=== PATIENT | male | born 1955 | race African-American/Black ===

== ENCOUNTER 2016-06-03 21:09 | Emergency (ER) | payer MEDICAID ==
[~2016-06-03] VITALS: Ht 182.9 cm; Wt 95.0 kg
[~2016-06-03 21:09] MED LIST: AMLO5TAB88 PO; ASPI81TA2 PO; COR12 PO; FURO40TA5 PO; LOSA50TA3 PO
[2016-06-03] MEDS ORDERED: NITROGLYCERIN 0.4MG TABLET SL SL PRN (21:30)
[2016-06-03] MEDS ORDERED: ASPIRIN 81MG TABLET PO ONE (21:30)
[2016-06-03 23:20] LABS: BASOPHILS % 0.7 % (0.0-2.0); EOSINOPHILS % 1.8 % (0.0-5.0); HEMATOCRIT. 28.5 % (42.0-52.0); HEMOGLOBIN. 9.3 g/dL (14.0-18.0); LYMPHOCYTES % 13.1 % (20.0-50.0); MEAN CORPUSCULAR HGB CONC 32.7 g/dL (31.0-37.0); MEAN CORPUSCULAR VOLUME 91.5 fL (80.0-94.0); MEAN PLATELET VOLUME 8.9 fl (7.4-10.4); MONOCYTES % 13.6 % (2.0-8.0); NEUTROPHILS % 70.8 % (40.0-76.0); PLATELET 221 x1000/uL (130-400); RED BLOOD CELL COUNT 3.11 mill/uL (4.7-6.1); RED CELL DISTRIBUTION WIDTH 14.9 % (11.6-14.6); WHITE BLOOD COUNT 7.5 x1000/uL (4.5-11.0)
[2016-06-03 23:22] LABS: CHLORIDE 103 mEq/L (98-107)
[2016-06-03 23:23] LABS: INR 1.1; PROTHROMBIN TIME 11.1 sec
[2016-06-03 23:33] LABS: ALANINE AMINOTRANSFERASE 14 IU/L (13-61); ALBUMIN 2.9 g/dL (3.4-5.0); ANION GAP 12; CALCIUM 7.8 mg/dL (8.5-10.1); CARBON DIOXIDE 27 mEq/L (21-32); INDEX HEMOLYSI 1 (1-3); INDEX ICTERIC 1 (1-4); INDEX LIPEMIC 1 (1-3); NT PRO B-TYPE NATRIURETIC PEP 4795 pg/mL (5-125); TROPONIN I 0.05 ng/mL (0.00-0.04); UREA NITROGEN BLOOD 67 mg/dL (7-21); eGFR 30 mL/min (>60)
[2016-06-04] MEDS ORDERED: FUROSEMIDE 40MG/4ML VIAL IVP ONE (00:15)
[2016-06-04] MEDS ORDERED: IBUPROFEN 600MG TABLET PO ONE (00:15)
[2016-06-04] MEDS ORDERED: ACETAMINOPHEN WITH CODEINE 300/30MG TABLET PO ONE (00:30)
[2016-06-04 00:55] VITALS: BP 142/92
[2016-06-09] MEDS ORDERED: ISOS30TA6 PO (03:46)
[2016-06-09] MEDS ORDERED: METF10002 PO (03:46)
[2016-06-09] MEDS ORDERED: ATOR10TA PO (03:46)
[2016-06-09] MEDS ORDERED: FOLI-43 PO (03:46)
[2016-06-09] MEDS ORDERED: HYDR-4134 PO (03:46)
== END 2016-06-04 01:10 | disposition home or self-care (01) ==
LOC: ER 21:09
DX: I13.0 Hypertensive heart and chronic kidney disease with heart failure and stage 1 through stage 4 chronic kidney disease, or unspecified chronic kidney disease (principal); N18.9 Chronic kidney disease, unspecified; I50.9 Heart failure, unspecified; E11.22 Type 2 diabetes mellitus with diabetic chronic kidney disease; Z79.899 Other long term (current) drug therapy; Z88.7 Allergy status to serum and vaccine; F12.10 Cannabis abuse, uncomplicated; E78.00 Pure hypercholesterolemia, unspecified
CPT/HCPCS: 36415; 71010; 80053; 83880; 84484; 85025; 85610; 93005; 96374; 99285; J1940; Z7610

== ENCOUNTER 2016-06-04 01:37 | Emergency (ER) | payer MEDICAID ==
[~2016-06-04] VITALS: Ht 198.1 cm; Wt 96.0 kg
[2016-06-04] MEDS ORDERED: IBUPROFEN 800MG TABLET PO ONE (03:00)
[2016-06-04] MEDS ORDERED: CYCLOBENZAPRINE 10MG TABLET PO ONE (03:00)
[2016-06-04 08:17] VITALS: BP 149/86
== END 2016-06-04 08:17 | disposition home or self-care (01) ==
LOC: ER 02:22
DX: M54.5 Low back pain (principal); I11.9 Hypertensive heart disease without heart failure; I25.10 Atherosclerotic heart disease of native coronary artery without angina pectoris; E11.9 Type 2 diabetes mellitus without complications; F12.10 Cannabis abuse, uncomplicated; Z88.7 Allergy status to serum and vaccine; Z79.82 Long term (current) use of aspirin; Z79.899 Other long term (current) drug therapy
CPT/HCPCS: 72100; 99284

== ENCOUNTER 2020-06-05 09:01 | Inpatient (IN) | payer MEDICAID ==
[~2020-06-05] VITALS: Ht 182.9 cm; Wt 108.9 kg
[~2020-06-05 09:01] MED LIST changes: +ASPI-1160 PO; -ASPI81TA2 PO; +ATOR10TA PO; -COR12 PO; +COR25 PO; +FERR325T6 PO; +FOLI-43 PO; +HYDR-4134 PO; +ISOS30TA91 PO
[2020-06-05 09:57] LABS: BASOPHILS % 1.4 % (0.0-2.0); EOSINOPHILS % 0.4 % (0.0-5.0); HEMATOCRIT. 35.2 % (42.0-52.0); HEMOGLOBIN. 11.4 g/dL (14.0-18.0); LYMPHOCYTES % 9.9 % (20.0-50.0); MEAN CORPUSCULAR HEMOGLOBIN 32.7 pg (28.0-32.0); MEAN CORPUSCULAR VOLUME 100.7 fL (80.0-94.0); MEAN PLATELET VOLUME 10.3 fl (7.4-10.4); MONOCYTES % 12.9 % (2.0-8.0); NEUTROPHILS % 75.4 % (40.0-76.0); PLATELET 168 x1000/uL (130-400); RED BLOOD CELL COUNT 3.49 mill/uL (4.7-6.1); RED CELL DISTRIBUTION WIDTH 19.4 % (11.6-14.6)
[2020-06-05 10:15] LABS: INR 1.4; PROTHROMBIN TIME 14.3 sec (9.6-11.0)
[2020-06-05 10:50] LABS: CHLORIDE 97 mEq/L (98-107)
[2020-06-05 10:55] LABS: ETHANOL BLOOD < 10 mg/dL
[2020-06-05 10:57] LABS: PHOSPHORUS 6.5 mg/dL (2.5-4.9)
[2020-06-05 10:58] LABS: LDL CHOLESTEROL 34 mg/dL (5-100)
[2020-06-05] MEDS ORDERED: ASPIRIN 81MG TABLET PO ONE (11:30)
[2020-06-05] MEDS ORDERED: LORAZEPAM 0.5MG TABLET PO PRN (12:15)
[2020-06-05] MEDS ORDERED: DOCUSATE SODIUM 100MG CAPSULE PO PRN (12:15)
[2020-06-05] MEDS ORDERED: ACETAMINOPHEN 325MG TABLET PO PRN ×2 (12:15)
[2020-06-05] MEDS ORDERED: IPRATROPIUM/ALBUTEROL 0.5-3(2.5)MG/3ML NEB HHN PRN (12:15)
[2020-06-05] MEDS ORDERED: ONDANSETRON HCL 4MG/2ML INJ IV PRN (12:15)
[2020-06-05] MEDS ORDERED: CLONIDINE 0.1MG TABLET PO PRN (12:15)
[2020-06-05 12:59] LABS: FOLIC ACID (FOLATE) SERUM 5.9 ng/mL (>5.38)
[2020-06-05 13:30] VITALS: BP 112/72
[2020-06-05] MEDS: AMLODIPINE 2.5MG TABLET PO SCH (14:15)
[2020-06-05 16:00] VITALS: BP 103/72
[2020-06-05] MEDS: HYDROCODONE/ACETAMINOPHEN 5/325MG TABLET PO PRN (17:20)
[2020-06-05 17:39] VITALS: BP 107/79
[2020-06-05 20:00] VITALS: BP 107/71
[2020-06-06] VITALS: BP 121/85
[2020-06-06] MEDS: HYDROCODONE/ACETAMINOPHEN 5/325MG TABLET PO PRN ×3 (03:52→23:23)
[2020-06-06 04:00] VITALS: BP 122/93
[2020-06-06 08:00] VITALS: BP 114/78
[2020-06-06] MEDS: ASPIRIN 81MG EC TABLET PO SCH (08:56)
[2020-06-06] MEDS: AMLODIPINE 2.5MG TABLET PO SCH (08:57)
[2020-06-06] MEDS ORDERED: DEXTROSE 50% WATER 50ML SYRINGE IV PRN ×2 (10:45)
[2020-06-06 10:47] LABS: BASOPHILS % 0.9 % (0.0-2.0); EOSINOPHILS % 0.4 % (0.0-5.0); HEMATOCRIT. 33.6 % (42.0-52.0); LYMPHOCYTES % 13.8 % (20.0-50.0); MEAN CORPUSCULAR HEMOGLOBIN 32.8 pg (28.0-32.0); MEAN CORPUSCULAR VOLUME 100.2 fL (80.0-94.0); MEAN PLATELET VOLUME 9.5 fl (7.4-10.4); MONOCYTES % 12.5 % (2.0-8.0); NEUTROPHILS % 72.4 % (40.0-76.0); PLATELET 156 x1000/uL (130-400); RED BLOOD CELL COUNT 3.35 mill/uL (4.7-6.1); RED CELL DISTRIBUTION WIDTH 18.5 % (11.6-14.6)
[2020-06-06] MEDS: ENOXAPARIN 40MG/0.4ML SYR SUBCUT SCH ×2 (11:34→11:52)
[2020-06-06] MEDS: FOLIC ACID 1MG TABLET PO SCH (11:51)
[2020-06-06] MEDS: BLOOD SUGAR DIAGNOSTIC STRIP TEST SCH ×3 (11:52→20:39)
[2020-06-06 12:00] VITALS: BP 116/89
[2020-06-06] MEDS: INSULIN LISPRO 100 UNITS/ML SUBCUT SCH ×3 (12:20→20:40)
[2020-06-06] MEDS ORDERED: CARVEDILOL 3.125 MG TABLET PO NR (13:00)
[2020-06-06 16:00] VITALS: BP 98/67
[2020-06-06 20:00] VITALS: BP 95/68
[2020-06-06] MEDS: ATORVASTATIN CALCIUM 10MG TABLET PO SCH (20:39)
[2020-06-06] MEDS: CARVEDILOL 3.125 MG TABLET PO SCH (20:40)
[2020-06-07] VITALS: BP 105/76
[2020-06-07 04:00] VITALS: BP 113/81
[2020-06-07] MEDS: INSULIN LISPRO 100 UNITS/ML SUBCUT SCH ×4 (06:57→21:28)
[2020-06-07] MEDS: HYDROCODONE/ACETAMINOPHEN 5/325MG TABLET PO PRN ×2 (06:57→13:53)
[2020-06-07] MEDS: BLOOD SUGAR DIAGNOSTIC STRIP TEST SCH ×4 (06:57→21:27)
[2020-06-07 08:00] VITALS: BP 120/79
[2020-06-07] MEDS: AMLODIPINE 2.5MG TABLET PO SCH (09:00)
[2020-06-07] MEDS: CARVEDILOL 3.125 MG TABLET PO SCH ×2 (09:00→21:27)
[2020-06-07] MEDS: ASPIRIN 81MG EC TABLET PO SCH (09:22)
[2020-06-07] MEDS: FOLIC ACID 1MG TABLET PO SCH (09:22)
[2020-06-07] MEDS: ENOXAPARIN 40MG/0.4ML SYR SUBCUT SCH (09:22)
[2020-06-07 12:00] VITALS: BP 115/86
[2020-06-07 16:00] VITALS: BP 121/71
[2020-06-07 20:00] VITALS: BP 111/69
[2020-06-07] MEDS: ATORVASTATIN CALCIUM 10MG TABLET PO SCH (21:27)
[2020-06-08] VITALS: BP 102/67
[2020-06-08] MEDS: HYDROCODONE/ACETAMINOPHEN 5/325MG TABLET PO PRN ×3 (03:30→20:21)
[2020-06-08 04:00] VITALS: BP 106/76
[2020-06-08] MEDS: BLOOD SUGAR DIAGNOSTIC STRIP TEST SCH ×4 (06:07→20:14)
[2020-06-08] MEDS: INSULIN LISPRO 100 UNITS/ML SUBCUT SCH ×4 (06:07→20:14)
[2020-06-08 08:00] VITALS: BP 118/85
[2020-06-08 08:33] LABS: BASOPHILS % 1.6 % (0.0-2.0); EOSINOPHILS % 0.6 % (0.0-5.0); HEMATOCRIT. 34.2 % (42.0-52.0); HEMOGLOBIN. 10.9 g/dL (14.0-18.0); MEAN CORPUSCULAR HEMOGLOBIN 32.2 pg (28.0-32.0); MEAN CORPUSCULAR VOLUME 100.6 fL (80.0-94.0); MEAN PLATELET VOLUME 9.5 fl (7.4-10.4); MONOCYTES % 11.4 % (2.0-8.0); NEUTROPHILS % 77.4 % (40.0-76.0); PLATELET 156 x1000/uL (130-400)
[2020-06-08] MEDS: ENOXAPARIN 40MG/0.4ML SYR SUBCUT SCH ×2 (09:00→09:23)
[2020-06-08] MEDS: ASPIRIN 81MG EC TABLET PO SCH (09:23)
[2020-06-08] MEDS: FOLIC ACID 1MG TABLET PO SCH (09:23)
[2020-06-08] MEDS: AMLODIPINE 2.5MG TABLET PO SCH (09:25)
[2020-06-08] MEDS: CARVEDILOL 3.125 MG TABLET PO SCH ×2 (09:27→20:14)
[2020-06-08 12:00] VITALS: BP 111/79
[2020-06-08 16:00] VITALS: BP 120/86
[2020-06-08 20:00] VITALS: BP 110/79
[2020-06-08] MEDS: ATORVASTATIN CALCIUM 10MG TABLET PO SCH (20:14)
[2020-06-09] VITALS: BP 150/65
[2020-06-09] MEDS: HYDROCODONE/ACETAMINOPHEN 5/325MG TABLET PO PRN ×2 (03:13→10:54)
[2020-06-09 04:00] VITALS: BP 105/66
[2020-06-09] MEDS: BLOOD SUGAR DIAGNOSTIC STRIP TEST SCH ×2 (06:00→11:45)
[2020-06-09] MEDS: INSULIN LISPRO 100 UNITS/ML SUBCUT SCH ×2 (06:43→12:49)
[2020-06-09 06:46] LABS: BASOPHILS % 0.6 % (0.0-2.0); EOSINOPHILS % 0.5 % (0.0-5.0); HEMATOCRIT. 32.1 % (42.0-52.0); HEMOGLOBIN. 10.4 g/dL (14.0-18.0); LYMPHOCYTES % 11.9 % (20.0-50.0); MEAN CORPUSCULAR HEMOGLOBIN 32.7 pg (28.0-32.0); MEAN CORPUSCULAR VOLUME 101.2 fL (80.0-94.0); MEAN PLATELET VOLUME 9.7 fl (7.4-10.4); MONOCYTES % 14.4 % (2.0-8.0); NEUTROPHILS % 72.6 % (40.0-76.0); PLATELET 162 x1000/uL (130-400); RED BLOOD CELL COUNT 3.17 mill/uL (4.7-6.1); RED CELL DISTRIBUTION WIDTH 19.3 % (11.6-14.6)
[2020-06-09 08:00] VITALS: BP 109/74
[2020-06-09] MEDS: AMLODIPINE 2.5MG TABLET PO SCH (08:48)
[2020-06-09] MEDS: ASPIRIN 81MG EC TABLET PO SCH (08:50)
[2020-06-09] MEDS: ENOXAPARIN 40MG/0.4ML SYR SUBCUT SCH (08:50)
[2020-06-09] MEDS: CARVEDILOL 3.125 MG TABLET PO SCH (08:50)
[2020-06-09] MEDS: FOLIC ACID 1MG TABLET PO SCH (08:50)
[2020-06-09 10:54] VITALS: BP 109/74
[2020-06-09] MEDS ORDERED: FURO40TA5 PO (12:15)
[2020-06-09] MEDS ORDERED: AMLO2.5T45 PO (12:15)
[2020-06-09] MEDS ORDERED: COR3 PO (12:15)
== END 2020-06-09 14:19 | disposition home health service (06) | DRG 194 ==
LOC: ER 09:01 → EDBEDREQTM 10:40 → 5WST 11:19 → EDBEDREQTM 11:22 → EDBEDREQ 11:22 → ENRESERV 11:51
PROVIDERS: ADMIT Internal Medicine; ATTEND Internal Medicine
PROC: 5A1D70Z Performance of Urinary Filtration, Intermittent, Less than 6 Hours Per Day (ICD-10-PCS; principal; 2020-06-05)
PROC: 5A1D70Z Performance of Urinary Filtration, Intermittent, Less than 6 Hours Per Day (ICD-10-PCS; 2020-06-06)
PROC: 5A1D70Z Performance of Urinary Filtration, Intermittent, Less than 6 Hours Per Day (ICD-10-PCS; 2020-06-07)
PROC: 5A1D70Z Performance of Urinary Filtration, Intermittent, Less than 6 Hours Per Day (ICD-10-PCS; 2020-06-09)
DX: I13.2 Hypertensive heart and chronic kidney disease with heart failure and with stage 5 chronic kidney disease, or end stage renal disease (principal); I50.23 Acute on chronic systolic (congestive) heart failure; I42.0 Dilated cardiomyopathy; L97.929 Non-pressure chronic ulcer of unspecified part of left lower leg with unspecified severity; L97.919 Non-pressure chronic ulcer of unspecified part of right lower leg with unspecified severity; N18.6 End stage renal disease; E11.22 Type 2 diabetes mellitus with diabetic chronic kidney disease; I27.20 Pulmonary hypertension, unspecified; I50.82 Biventricular heart failure; D53.9 Nutritional anemia, unspecified; I34.0 Nonrheumatic mitral (valve) insufficiency; D72.821 Monocytosis (symptomatic); E66.9 Obesity, unspecified; E78.5 Hyperlipidemia, unspecified; E83.39 Other disorders of phosphorus metabolism; I44.0 Atrioventricular block, first degree; J44.9 Chronic obstructive pulmonary disease, unspecified; E87.1 Hypo-osmolality and hyponatremia; Z82.49 Family history of ischemic heart disease and other diseases of the circulatory system; Z99.2 Dependence on renal dialysis; I25.2 Old myocardial infarction; Z79.84 Long term (current) use of oral hypoglycemic drugs; Z68.32 Body mass index [BMI] 32.0-32.9, adult; Z88.7 Allergy status to serum and vaccine; Z88.8 Allergy status to other drugs, medicaments and biological substances; Z79.899 Other long term (current) drug therapy
CPT/HCPCS: 36415; 71045; 80048; 80053; 80061; 80320; 82040; 82607; 82746; 82962; 83036; 83721; 83735; 84100; 84134; 84443; 84484; 85025; 85379; 93005; 93306; 93970; 99291; J1650; J1815; G0480

== ENCOUNTER 2020-07-10 18:34 | Emergency (ER) | payer MEDICAID ==
[~2020-07-10] VITALS: Ht 190.5 cm; Wt 116.0 kg
[~2020-07-10 18:34] MED LIST changes: +AMLO2.5T45 PO; -AMLO5TAB88 PO; -COR25 PO; +COR3 PO; -HYDR-4134 PO; -LOSA50TA3 PO
[2020-07-10 20:21] LABS: HEMATOCRIT. 22.5 % (42.0-52.0); HEMOGLOBIN. 7.6 g/dL (14.0-18.0); MEAN CORPUSCULAR VOLUME 100.3 fL (80.0-94.0); MEAN PLATELET VOLUME 9.2 fl (7.4-10.4); PLATELET 189 x1000/uL (130-400); RED BLOOD CELL COUNT 2.25 mill/uL (4.7-6.1)
[2020-07-10 20:30] LABS: CHLORIDE 94 mEq/L (98-107)
[2020-07-10 21:24] LABS: PLATELET ESTIMATE NORMAL
[2020-07-10] MEDS ORDERED: CALCIUM GLUCONATE 100MG/ML 10ML VIAL IV ONE (22:30)
[2020-07-10] MEDS ORDERED: INSULIN REGULAR (HUMULIN R) 300UNITS/3ML VIAL IV ONE (22:30)
[2020-07-10] MEDS ORDERED: DEXTROSE 10% WATER 500 ML IV ONE (22:30)
[2020-07-10 23:00] VITALS: BP 141/71
== END 2020-07-10 23:00 | disposition left against medical advice (07) ==
LOC: ER 18:34 → EDBEDREQ 22:40 → ER 23:00 → CANBEDREQ 23:35
DX: E11.52 Type 2 diabetes mellitus with diabetic peripheral angiopathy with gangrene (principal); I96 Gangrene, not elsewhere classified; E11.621 Type 2 diabetes mellitus with foot ulcer; E87.1 Hypo-osmolality and hyponatremia; E87.5 Hyperkalemia; Z79.4 Long term (current) use of insulin
CPT/HCPCS: 36415; 80053; 85025; 93005; 99284; J1815; Z7610; J0610